=== PATIENT | female | born 1975 | race Hispanic/Latino ===

== ENCOUNTER 2020-05-09 22:43 | Emergency (ER) | payer OTHER, SELFPAY ==
[2020-05-10 15:36] LABS: SARS-CoV-2 MS2 Positive; SARS-CoV-2 N Gene Negative; SARS-CoV-2 S Gene Negative; SARS-CoV-2 orf1ab Negative
== END 2020-05-09 23:50 | disposition home or self-care (01) ==
LOC: ERS 22:43
DX: R05 Cough (principal); R50.9 Fever, unspecified; R09.81 Nasal congestion; R06.02 Shortness of breath; Z20.828 Contact with and (suspected) exposure to other viral communicable diseases
CPT/HCPCS: 87635; 99283; U0003